=== PATIENT | male | born 1985 | race American Indian/Alaskan Native ===

== ENCOUNTER 2017-08-23 06:14 | Emergency (ER) | payer OTHER ==
[2017-08-23 07:54] LABS: Basophils % (Auto) 0.5 % (0.0-1.8); Eosinophils # (Auto) 0.3 K/mm3 (0.0-0.4); Eosinophils % (Auto) 3.7 % (0.0-4.3); Hematocrit 41.1 % (35.5-45.6); Hemoglobin 13.3 gm/dl (11.8-15.2); Lymphocytes # (Auto) 2.3 K/mm3 (1.2-5.4); Lymphocytes % (Auto) 28.7 % (13.4-35.0); Mean Corpuscular HGB Conc 32 % (32-34); Mean Corpuscular Hemoglobin 27 pg (28-32); Mean Corpuscular Volume 83 fl (84-94); Monocytes # (Auto) 0.7 K/mm3 (0.0-0.8); Monocytes % (Auto) 8.9 % (0.0-7.3); Platelet Count 116 K/mm3 (140-440); Red Blood Count 4.95 M/mm3 (3.65-5.03)
[2017-08-23 08:06] LABS: BUN/Creatinine Ratio 18; Blood Urea Nitrogen 20 mg/dL (9-20); Calcium 9.1 mg/dL (8.4-10.2); Hemolysis Index 19
[2017-08-23 09:33] LABS: Amorphous Crystals,Urine Few; Bacteria,Urine 1+ /HPF (Negative); Bilirubin,Urine NEG (Negative); Blood,Urine NEG (Negative); Color,Urine Yellow (Yellow); Mucus,Urine 1+ /HPF; Nitrite,Urine NEG (Negative)
[2017-08-23] MEDS ORDERED: ALUM-MAG HYDROX-SIMETH 200-200-20MG/5ML PO ONE (09:34)
[2017-08-23] MEDS ORDERED: LIDOCAINE VISCOUS 2% PO ONE (09:34)
[2017-08-23] MEDS ORDERED: ZOFRAN ODT PO ONE (09:42)
[2017-08-23 10:07] LABS: Amphetamine Screen,Urine PRESUMPTIVE NEGATIVE; Benzodiazepines Screen,Urine PRESUMPTIVE NEGATIVE; Cocaine Screen,Urine PRESUMPTIVE NEGATIVE; Methadone Screen,Urine PRESUMPTIVE NEGATIVE; Opiate Screen,Urine PRESUMPTIVE NEGATIVE
[2017-08-23] MEDS ORDERED: NACL 0.9% 1000 ML 1,000 ML IV ONE (10:11)
[2017-08-23] MEDS ORDERED: MORPHINE IV ONE ×3 (10:15→11:47)
[2017-08-23] MEDS ORDERED: NACL 0.9% 1000 ML 1,000 ML ONE (10:15)
[2017-08-23] MEDS ORDERED: MORPHINE ONE (10:16)
[2017-08-23 10:20] LABS: Cannabinoid Screen,Urine PRESUMPTIVE POSITIVE
--- NOTE | 2017-08-23 11:20 | Emergency Department Report ---
HPI - HPI HPI: 32-year-old -[place] male comes in stating has a pain 10 out of 10 pressure cramping type chest pain in the sternal area about 1 hour prior to arrival. Patient denies any radiation. He reports shortness of breath and feeling sweaty. Patient reports that he woke up about 5 AM this morning in excruciating pain located in the epigastric area. Patient does admit to drinking alcohol prior to going to bed as well as eating hot wings and [employer] food. Patient denies any past medical history currently takes no medication and has no known drug allergies. Patient reports that he did vomit once he is nauseated he reports that the chest pain is burning and is not able to get comfortable. <JOSSELYN TERRY - Last Filed: 08/23/17 13:55> <YONG GARCIA - Last Filed: 08/23/17 15:04> - General Chief Complaint: Chest Pain Time Seen by Provider: 08/23/17 09:38 ED Past Medical Hx - Past Medical History Previous Medical History?: No - Surgical History Past Surgical History?: Yes Additional Surgical History: Hand - Social History Smoking Status: Current Every Day Smoker Substance Use Type: Alcohol <JOSSELYN TERRY - Last Filed: 08/23/17 13:55> <YONG GARCIA - Last Filed: 08/23/17 15:04> - Medications Home Medications: Home Medications Medication Instructions Recorded Confirmed Last Taken Type Omeprazole 20 mg PO QDAY #30 tablet. 08/23/17 Unknown Rx Ranitidine HCl [Zantac 150 MG TAB] 150 mg PO BID #20 tablet 08/23/17 Unknown Rx ED Review of Systems ROS: Stated complaint: CHEST PAIN Other details as noted in HPI Constitutional: denies: chills, fever Eyes: denies: eye pain, eye discharge, vision change ENT: denies: ear pain, throat pain Respiratory: denies: cough, shortness of breath, wheezing Cardiovascular: denies: chest pain, palpitations Endocrine: no symptoms reported Gastrointestinal: abdominal pain (epigastric), nausea, vomiting (once). denies : diarrhea Genitourinary: denies: urgency, dysuria Musculoskeletal: denies: back pain, joint swelling, arthralgia Skin: denies: rash, lesions Neurological: denies: headache, weakness, paresthesias Psychiatric: denies: anxiety, depression Hematological/Lymphatic: denies: easy bleeding, easy bruising <JOSSELYN TERRY - Last Filed: 08/23/17 13:55> ROS: Stated complaint: CHEST PAIN Other details as noted in HPI <YONG GARCIA - Last Filed: 08/23/17 15:04> Physical Exam - Physical Exam Vital Signs: Vital Signs 08/23/17 08/23/17 06:19 06:51 Temperature 97.4 F L 97.4 F L Pulse Rate 74 70 Respiratory 18 18 Rate Blood Pressure 130/68 130/68 O2 Sat by Pulse 100 100 Oximetry Physical Exam: GENERAL APPEARANCE: Well developed, well nourished, in no acute distress. Patient's moving around getting up not able to get comfortable. SKIN: Inspection of the skin reveals no rashes, ulcerations or petechiae. HEENT: The sclerae were anicteric and conjunctivae were pink and moist. Extraocular movements were intact and pupils were equal, round, and reactive to light with normal accommodation. External inspection of the ears and nose showed no scars, lesions, or masses. Lips, teeth, and gums showed normal mucosa. The oral mucosa, hard and soft palate, tongue and posterior pharynx were normal. NECK: Supple and symmetric. There was no thyroid enlargement, and no tenderness , or masses were felt. CHEST: Normal AP diameter and normal contour without any kyphoscoliosis. LUNGS: Auscultation of the lungs revealed normal breath sounds without any other adventitious sounds or rubs. CARDIOVASCULAR: There was a regular rate and rhythm without any murmurs, gallops , rubs. The carotid pulses were normal and 2+ bilaterally without bruits. Peripheral pulses were 2+ and symmetric. ABDOMEN: Soft with epigastric tenderness normal bowel sounds. The liver span was approximately 5-6 cm in the right midclavicular line by percussion. The liver edge was nontender. The spleen was not palpable. There were no inguinal or umbilical hernias noted. No ascites was noted. LYMPH NODES: No lymphadenopathy was appreciated in the neck, axillae or groin. MUSCULOSKELETAL: Gait was normal. There was no tenderness or effusions noted. Muscle strength and tone were normal. EXTREMITIES: No cyanosis, clubbing or edema. NEUROLOGIC: Alert and oriented x 3. Normal affect. Gait was normal. Normal deep tendon reflexes with no pathological reflexes. Sensation to touch was normal. <JOSSELYN TERRY - Last Filed: 08/23/17 13:55> - Physical Exam Vital Signs: Vital Signs 08/23/17 08/23/17 08/23/17 06:19 06:51 11:46 Temperature 97.4 F L 97.4 F L Pulse Rate 74 70 Respiratory 18 18 20 Rate Blood Pressure 130/68 130/68 Blood Pressure [Left] O2 Sat by Pulse 100 100 Oximetry 08/23/17 11:53 Temperature Pulse Rate 74 Respiratory 14 Rate Blood Pressure Blood Pressure 122/71 [Left] O2 Sat by Pulse 97 Oximetry <JOSEYONG - Last Filed: 08/23/17 15:04> ED Course Vital Signs 08/23/17 08/23/17 06:19 06:51 Temperature 97.4 F L 97.4 F L Pulse Rate 74 70 Respiratory 18 18 Rate Blood Pressure 130/68 130/68 O2 Sat by Pulse 100 100 Oximetry <JOSSELYN TERRY - Last Filed: 08/23/17 13:55> Vital Signs 08/23/17 08/23/17 08/23/17 06:19 06:51 11:46 Temperature 97.4 F L 97.4 F L Pulse Rate 74 70 Respiratory 18 18 20 Rate Blood Pressure 130/68 130/68 Blood Pressure [Left] O2 Sat by Pulse 100 100 Oximetry 08/23/17 11:53 Temperature Pulse Rate 74 Respiratory 14 Rate Blood Pressure Blood Pressure 122/71 [Left] O2 Sat by Pulse 97 Oximetry <JOSEYONG - Last Filed: 08/23/17 15:04> ED Medical Decision Making - Lab Data Result diagrams: 08/23/17 07:19 08/23/17 07:19 - Medical Decision Making Patient has been evaluated with this provider fast track. Labs were ordered, CT of the abdomen and chest was ordered. Patient had a bolus of IV fluids 2 mg of morphine and and a GI cocktail. CT of the abdomen showed there is some cholelithiasis for mild edema to the gallbladder no obstruction. We'll refer patient to GI specialist. <JOSSELYN TERRY - Last Filed: 08/23/17 13:55> - Lab Data Result diagrams: 08/23/17 07:19 08/23/17 07:19 <YONG GARCIA Last Filed: 08/23/17 15:04> Critical care attestation.: If time is entered above; I have spent that time in minutes in the direct care of this critically ill patient, excluding procedure time. <JOSSELYN TERRY - Last Filed: 08/23/17 13:55> Critical care attestation.: If time is entered above; I have spent that time in minutes in the direct care of this critically ill patient, excluding procedure time. <YONG GARCIA Last Filed: 08/23/17 15:04> ED Disposition Is pt being admited?: No Does the pt Need Aspirin: No <JOSSELYN TERRY - Last Filed: 08/23/17 13:55> <YONG GARCIA Filed: 08/23/17 15:04> Disposition: DC-01 TO HOME OR SELFCARE Condition: Stable Instructions: Gastritis (ED), Biliary Colic (ED) Additional Instructions: Take medication as prescribed. Is very important. Follow up with facetor for further evaluation. He may take Tylenol for pain. I will avoid ibuprofen/Motrin/naproxen/Aleve/Excedrin at this time. He is return back to the emergency room if he developed worsening symptoms fever not able to hold down any food. Prescriptions: Omeprazole 20 mg PO QDAY #30 tablet. Ranitidine HCl [Zantac 150 MG TAB] 150 mg PO BID #20 tablet Referrals: PRIMARY CARE, [Primary Care Provider] - 3-5 Days Forms: Work/School Release Form(ED)
--- NOTE | 2017-08-23 11:52 | Cat Scan Report ---
CT CHEST WITHOUT CONTRAST: HISTORY: Epigastric pain and burning. COMPARISON: none. TECHNIQUE: Helical CT in 1.25mm intervals without IV contrast. Sagittal and coronal reformatted images. FINDINGS: Thyroid gland: Normal. Tracheobronchial tree: Normal. Esophagus: Normal. Heart: Normal. Pericardium: Normal. Mediastinum: Normal. Lung Perez: Normal. Pleural Spaces: Normal. Musculoskeletal: Normal. IMPRESSION: Unremarkable CT chest without contrast.
[2017-08-23 11:54] VITALS: BP 122/71
--- NOTE | 2017-08-23 11:55 | Cat Scan Report ---
CT ABDOMEN PELVIS WITHOUT CONTRAST: HISTORY: abdominal pain. COMPARISON: none. TECHNIQUE: Helical CT in 1.25mm intervals without IV contrast. Sagittal and coronal reconstructions. FINDINGS: Lung bases: Normal. Liver: Normal. Biliary system: Approximately 3 or 4 calcified gallstones are identified within the gallbladder measuring up to 1 cm. Mild gallbladder wall edema is identified. No abscess or fluid collection. The CBD and intrahepatic biliary ducts are within normal limits. Pancreas: Normal. Spleen: Normal. Kidneys/ureters/bladder: Normal. Adrenal glands: Normal. Aorta: Normal. Intestines: Normal. Appendix: Normal. Pelvic viscera: Normal. Ascites: None. Adenopathy: None. Musculoskeletal: Normal. IMPRESSION: Cholelithiasis with mild gallbladder wall edema. Please correlate for biliary symptoms.
--- NOTE | 2017-08-23 15:24 | Emergency Department Report ---
Blank Doc - Documentation Documentation: These change attending doctor to Dr. Wilson as I discussed my findings and concerns with Dr. Wilson.
== END 2017-08-23 12:54 | disposition home or self-care (01) ==
LOC: ED 06:14
DX: R07.2 Precordial pain (principal); R10.13 Epigastric pain; F17.200 Nicotine dependence, unspecified, uncomplicated
CPT/HCPCS: 36415; 71250; 74176; 80048; 80307; 81001; 83690; 84484; 85025; 93005; 93010; 96361; 96374; 96376; 99284; G0480; J2270; J7030; 80320; Q0162